=== PATIENT | male | born 1995 | race Caucasian/White ===

== ENCOUNTER 2016-11-21 11:38 | Emergency (ER) | payer OTHER ==
[~2016-11-21] VITALS: Ht 182.9 cm; Wt 76.7 kg
[2016-11-21 11:41] VITALS: BP 130/92
[2016-11-21] MEDS ORDERED: TRAZODONE HCL50 MG PO (11:44)
[2016-11-21] MEDS ORDERED: RISPERDAL4 M1 PO (11:45)
== END 2016-11-21 13:11 | disposition home or self-care (01) ==
LOC: ER 11:38
DX: S61.012A Laceration without foreign body of left thumb without damage to nail, initial encounter (principal); F17.210 Nicotine dependence, cigarettes, uncomplicated; W26.8XXA Contact with other sharp object(s), not elsewhere classified, initial encounter; Y93.89 Activity, other specified; Y92.89 Other specified places as the place of occurrence of the external cause; Y99.8 Other external cause status

== ENCOUNTER 2019-01-06 21:58 | Emergency (ER) | payer OTHER ==
[~2019-01-06] VITALS: Ht 182.9 cm; Wt 76.2 kg
[~2019-01-06 21:58] MED LIST: RISPERDAL4 M1 PO; TRAZODONE HCL50 MG PO
[2019-01-06] MEDS ORDERED: ABILIFY15 MG PO (22:48)
[2019-01-06] MEDS ORDERED: HYDROXYZINE HCL50 MG PO (22:48)
[2019-01-06 23:11] LABS: ABSOLUTE NEUTROPHILS 3.5 thou/uL (1.4-8.2); BASOPHILS 0.8 % (0.0-2.0); EOSINOPHILS 1.8 % (0.0-3.0); HEMATOCRIT 46.7 % (42.0-52.0); HEMOGLOBIN 15.6 gm/dL (14.0-18.0); LYMPHOCYTES 35.2 % (24.0-44.0); MCH 29.9 pg (26.0-34.0); MCHC 33.3 g/dL (28.0-37.0); MCV 89.7 fL (80.0-100.0); MONOCYTES 9.9 % (1.0-8.0); PLATELET COUNT 185 thou/uL (150-400); POLYS 52.3 % (36.0-66.0); RBC 5.21 mil/uL (4.50-6.00); RDW 13.6 % (10.5-14.5); WBC 6.6 thou/uL (4.0-11.0)
[2019-01-06 23:24] LABS: URINE BILIRUBIN NEGATIVE (Negative); URINE BLOOD NEGATIVE (Negative); URINE CLARITY CLEAR; URINE COLOR YELLOW; URINE GLUCOSE-RANDOM* NEGATIVE (Negative); URINE KETONES NEGATIVE (Negative); URINE LEUKOCYTES-REFLEX NEGATIVE (Negative); URINE NITRITE-REFLEX NEGATIVE (Negative); URINE PROTEIN (DIPSTICK) NEGATIVE (Negative); URINE SPECIFIC GRAVITY <= 1.005 (1.005-1.035); URINE UROBILINOGEN 0.2 E.U./dl (0.2-1.0)
[2019-01-06 23:25] LABS: CALCIUM 9.5 mg/dL (8.5-10.1); CREATININE 1.3 mg/dL (0.7-1.3); POTASSIUM 3.6 mmol/L (3.5-5.1)
[2019-01-06 23:29] LABS: ALBUMIN 4.3 g/dL (3.4-5.0); DIRECT BILIRUBIN 0.1 mg/dL (<0.1-0.3); TOTAL BILIRUBIN 0.4 mg/dL (<0.1-1.0); TOTAL PROTEIN 7.9 g/dL (6.4-8.2)
[2019-01-06 23:37] LABS: AMP/METHAMP Negative (Negative); BARBITURATES Negative (Negative); BENZODIAZEPINES Negative (Negative); COCAINE Negative (Negative); METHADONE Negative (Negative); OPIATES Negative (Negative); PCP Negative (Negative)
[2019-01-07 01:44] VITALS: BP 113/44
--- NOTE | 2019-01-08 12:19 | EKG ---
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
== END 2019-01-07 02:00 | disposition home or self-care (01) ==
LOC: ER 21:58
PROVIDERS: Emergency Medicine
DX: R55 Syncope and collapse (principal); F31.9 Bipolar disorder, unspecified; F41.9 Anxiety disorder, unspecified; F17.210 Nicotine dependence, cigarettes, uncomplicated

== ENCOUNTER 2019-10-07 17:13 | Emergency (ER) | payer OTHER ==
[~2019-10-07] VITALS: Ht 185.4 cm; Wt 96.6 kg
[~2019-10-07 17:13] MED LIST changes: +ABILIFY15 MG PO; +HYDROXYZINE HCL50 MG PO
[2019-10-07] MEDS ORDERED: BENZTROPINE MES1 MG PO (17:27)
[2019-10-07] MEDS ORDERED: FLUOXETINE HCL40 MG PO (17:27)
[2019-10-07] MEDS ORDERED: OLANZAPINE10 M1 PO (17:28)
[2019-10-07 19:00] LABS: ABSOLUTE NEUTROPHILS 1.8 thou/uL (1.4-8.2); ANION GAP 10 mmol/L (7-16); BASOPHILS 0.7 % (0.0-2.0); BUN 6 mg/dL (7-18); CALCIUM 9.2 mg/dL (8.5-10.1); CHLORIDE 104 mmol/L (98-107); CO2 28 mmol/L (21-32); CREATININE 1.2 mg/dL (0.7-1.3); EOSINOPHILS 4.8 % (0.0-3.0); GLUCOSE 84 mg/dL (74-106); HEMATOCRIT 45.3 % (42.0-52.0); HEMOGLOBIN 15.1 gm/dL (14.0-18.0); LYMPHOCYTES 42.1 % (24.0-44.0); MCHC 33.4 g/dL (28.0-37.0); MCV 86.8 fL (80.0-100.0); MONOCYTES 8.7 % (1.0-8.0); PLATELET COUNT 190 thou/uL (150-400); POLYS 43.7 % (36.0-66.0); RBC 5.22 mil/uL (4.50-6.00); RDW 13.9 % (10.5-14.5); SODIUM 142 mmol/L (136-145)
[2019-10-07 19:10] LABS: LIPASE 44 U/L (73-393); SGOT 202 U/L (15-37); SGPT 70 U/L (30-65); TOTAL BILIRUBIN 0.4 mg/dL (0.2-1.0); TOTAL PROTEIN 7.4 g/dL (6.4-8.2); TROPONIN-I <0.06 ng/mL (<0.06)
[2019-10-07] MEDS ORDERED: ACID CONTROLLER20 MG PO ×2 (19:26→19:27)
[2019-10-07 19:41] VITALS: BP 126/71
--- NOTE | 2019-10-08 09:12 | EKG ---
[facility] [place] [address] ELECTROCARDIOGRAM REPORT Name: ROBERT SCANLON Room #: DEP M.R.#: [id number] Admission: 10/07/19 Attend Phys: Discharge: 10/07/19 Date of : [birth year] Report #: [id number] THIS REPORT FOR: cc: Emiliano Robles MD, Neal A. 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1995 Requested By: Todd Rebolledo Order Number: [id number] MD: Alphonse Griffin Measurements Intervals [place] Rate: 67 P: 54 NE: 149 QRS: -26 QRSD: 91 T: 25 QT: 380 QTc: 401 Interpretive Statements Sinus rhythm Borderline left axis deviation RSR' in V1 or V2, probably normal variant Compared to ECG 01/06/2019 22:44:52 Sinus arrhythmia no longer present Electronically Signed On 10-08-2019 9:12:23 CDT by Alphonse Griffin [email or web address] <ELECTRONICALLY SIGNED> By: Alphonse Griffin MD, [facility] 10/08/1912 [id number] Alphonse Griffin MD, [facility] /EPI
== END 2019-10-07 19:42 | disposition home or self-care (01) ==
LOC: ER 17:13
PROVIDERS: Emergency Medicine
DX: R07.89 Other chest pain (principal); R11.2 Nausea with vomiting, unspecified; F31.9 Bipolar disorder, unspecified; F41.9 Anxiety disorder, unspecified; F17.210 Nicotine dependence, cigarettes, uncomplicated; Z79.899 Other long term (current) drug therapy

== ENCOUNTER → 2020-01-31 | Outpatient (CLI) | payer OTHER ==
[~2020-01-31] MED LIST changes: +ACID CONTROLLER20 MG PO; +BENZTROPINE MES1 MG PO; +FLUOXETINE HCL40 MG PO; +OLANZAPINE10 M1 PO
[2020-01-31 15:54] LABS: ABSOLUTE NEUTROPHILS 1.7 thou/uL (1.4-8.2); BASOPHILS 0.7 % (0.0-2.0); EOSINOPHILS 6.3 % (0.0-3.0); HEMATOCRIT 45.2 % (42.0-52.0); HEMOGLOBIN 15.1 gm/dL (14.0-18.0); LYMPHOCYTES 43.3 % (24.0-44.0); MCH 29.7 pg (26.0-34.0); MCHC 33.4 g/dL (28.0-37.0); MCV 89.1 fL (80.0-100.0); PLATELET COUNT 189 thou/uL (150-400); POLYS 40.7 % (36.0-66.0); RBC 5.07 mil/uL (4.50-6.00); RDW 13.4 % (10.5-14.5); WBC 4.1 thou/uL (4.0-11.0)
[2020-01-31 15:56] LABS: URINE BILIRUBIN NEGATIVE (Negative); URINE BLOOD NEGATIVE (Negative); URINE CLARITY CLEAR; URINE COLOR YELLOW; URINE GLUCOSE-RANDOM* NEGATIVE (Negative); URINE KETONES NEGATIVE (Negative); URINE LEUKOCYTES-REFLEX NEGATIVE (Negative); URINE NITRITE-REFLEX NEGATIVE (Negative); URINE PROTEIN (DIPSTICK) NEGATIVE (Negative); URINE UROBILINOGEN 0.2 E.U./dl (0.2-1.0)
[2020-01-31 16:14] LABS: ALBUMIN 4.2 g/dL (3.4-5.0); ANION GAP 11 mmol/L (7-16); BUN 9 mg/dL (7-18); CALCIUM 9.1 mg/dL (8.5-10.1); CHLORIDE 104 mmol/L (98-107); CHOLESTEROL 179 mg/dL (<200); CO2 27 mmol/L (21-32); CREATININE 1.1 mg/dL (0.7-1.3); GLUCOSE 83 mg/dL (74-106); HDL CHOLESTEROL 55 mg/dL (>40); LDL CHOLESTEROL 76 mg/dL (<100); POTASSIUM 4.4 mmol/L (3.5-5.1); SGOT 23 U/L (15-37); SGPT 36 U/L (30-65); SODIUM 142 mmol/L (136-145); TC:HDL 3.3 Ratio (Not establshd); TOTAL BILIRUBIN 0.3 mg/dL (0.2-1.0); TOTAL PROTEIN 7.4 g/dL (6.4-8.2); TRIGLYCERIDE 242 mg/dL (<150); VLDL 48 mg/dL (<40)
== END ==
LOC: LAB 15:20
PROVIDERS: ATTEND Family Medicine
DX: Z00.00 Encounter for general adult medical examination without abnormal findings (principal)